=== PATIENT | female | born 1955 | race Asian ===

== ENCOUNTER 2017-06-25 08:24 | Day surgery (SDC) | payer OTHER ==
[~2017-06-25] VITALS: Ht 154.9 cm; Wt 51.5 kg
[2017-06-25] MEDS ORDERED: CALCIUM CARBON650 M2 PO (08:50)
[2017-06-25] MEDS ORDERED: VITAMIN D 1001000 IU PO (08:50)
[2017-06-25] MEDS ORDERED: EPA FISH OIL1 SGL PO (08:50)
[2017-06-25] MEDS ORDERED: BENADRYL25 M2 PO (08:51)
[2017-06-25 09:05] VITALS: BP 138/80; PULSE 93; TEMP 97.6
[2017-06-25 10:53] VITALS: BP 114/72; PULSE 75; TEMP 97.3
[2017-06-25 11:07] VITALS: BP 116/74; PULSE 74
[2017-06-25 11:22] VITALS: BP 114/73; PULSE 70
[2017-06-25 11:36] VITALS: BP 103/64; PULSE 71
== END 2017-06-25 11:40 | disposition home or self-care (01) ==
LOC: SDCO 08:24
DX: Z12.11 Encounter for screening for malignant neoplasm of colon (principal); D12.8 Benign neoplasm of rectum; K64.0 First degree hemorrhoids
CPT/HCPCS: OP; J7030

== ENCOUNTER 2021-06-07 11:15 | Outpatient (RCR) | payer MEDICARE, OTHER ==
[~2021-06-07 11:15] MED LIST: BENADRYL25 M2 PO; CALCIUM CARBON650 M2 PO; EPA FISH OIL1 SGL PO; VITAMIN D 1001000 IU PO
== END 2021-06-09 | disposition home or self-care (01) ==
LOC: WSPT
DX: M79.672 Pain in left foot (principal)